=== PATIENT | female | born 1970 | race Caucasian/White ===

== ENCOUNTER 2019-09-24 05:45 | Day surgery (SDC) | payer OTHER ==
[~2019-09-24] VITALS: Ht 167.6 cm; Wt 62.6 kg
[~2019-09-24 05:45] MED LIST: OMEPRAZOLE20 MG PO
[2019-09-24] MEDS ORDERED: PERCOCET 5-3251 EACH PO (14:15)
[2019-09-24] MEDS ORDERED: MOTRIN IB200 MG (14:17)
--- NOTE | 2019-09-25 09:52 | OR ---
[facility] [address] [place] [address] Signed DATE OF OPERATION: 09/24/2019 SURGEON: Orestes Mason MD Patient of Dr. Mason. PREOPERATIVE DIAGNOSES: Excessive/frequent menstrual bleeding with irregular cycle, uterine fibroids, dysmenorrhea, bilateral complex ovarian masses. POSTOPERATIVE DIAGNOSES: Excessive/frequent menstrual bleeding with irregular cycle, uterine fibroids, dysmenorrhea, bilateral complex ovarian masses, endometriosis of pelvic peritoneum. PROCEDURES: Total laparoscopic hysterectomy, bilateral salpingo-oophorectomy, and cystoscopy. DIRECTOR OF BUSINESS CONTINUITY: Dr. Andrew. ANESTHESIA: General. ESTIMATED BLOOD LOSS: 30 mL. SPECIMEN: Uterus, both tubes and ovaries. DRAINS: Redd to bladder. PACKING: None. FINDINGS: Cervix, normal-sized, thick, closed. Uterus was irregular-shaped approximately 8-week size with approximately 4 cm fibroid protruding out of the right anterior lower segment. The anterior cul-de-sac had some of the peritoneum pulled towards the uterus on the right side forming a puckering of the peritoneum and the posterior cul-de-sac was free Electronically Signed By: ORESTES MASON MD 09/25/19 0952 PATIENT NAME: STAS PERDUE OPERATIVE REPORT DATE OF : 70 REPORT #: [id number] PHYSICIAN: ORESTES MASON MD PCP: CARLOS BECERRA MD REPORT IS CONFIDENTIAL AND NOT TO BE RELEASED WITHOUT AUTHORIZATION [facility] [address] [place], [place] [address] Signed of any endometriosis or adhesions. The left tube was normal in length and normal pink fimbriated end. The left ovary was enlarged, appeared to have a dark hemorrhagic approximately 4 cm cyst present. No adhesions. The right tube was normal length and normal pink fimbriated end. The right ovary was slightly enlarged, but otherwise appeared normal. There was endometriosis on the right pelvic sidewall just above the uterosacral ligament on the broad ligament near the uterine vessels causing some puckering. The appendix appeared normal. The rest of the pelvis was free of any masses or adhesions. The liver and gallbladder also appeared normal. COMPLICATIONS: None. DESCRIPTION OF PROCEDURE: The patient was brought to the operating room and placed in supine position. After adequate general anesthesia was obtained, she was placed in the dorsal lithotomy position, and prepped and draped in a sterile fashion. Redd catheter was placed in the bladder. Weighted speculum was placed in the vagina and the anterior lip of cervix grasped with an Allis clamp. The cervix was partially dilated and then the VCare uterine manipulator inserted into the uterus and up to the fundus, which measured approximately 10 cm. The balloon was filled with water and then the weighted speculum and Allis clamp removed. The cervical cap was slid up the manipulator and placed around the cervix and the vaginal cuff slid up and tightened in place to hold the cervical cap around the cervix. Attention was then drawn to the abdomen. A small infraumbilical skin incision was made after injecting the area with 0.25% Marcaine with epinephrine. A 5 mm direct entry trocar and sleeve were then used with gas attached to the trocar and the abdominal wall was manually lifted and the trocar and sleeve entered the abdomen under direct visualization. Since the tip entered the abdomen, gas began flowing into the abdomen to help separate the abdominal wall from the bowel. Once the sleeve was in place, trocar was removed and the 5 mm laparoscope with camera attachment inserted. The above findings were noted. On the left side just below the level of the umbilicus approximately 8-10 cm from the midline, abdominal wall was transilluminated, injected with 0.25% Marcaine with epinephrine and a small skin incision made. A bladed 5-mm trocar and sleeve entered the abdomen under direct visualization. Trocar was removed. A blunt grasper inserted on the right side again just below the level of the umbilicus, 8-10 cm lateral. The abdominal wall was transilluminated to avoid any vessels. The area injected with 0.25% Marcaine with epinephrine and then a small skin incision made on this side. A Veress needle with expandable sleeve was inserted into the abdomen under direct visualization. Trocar was removed and expandable trocar with 12 mm sleeve was placed through the expandable sleeve stretching the fascia without cutting it. The trocar was removed and blunt grasper inserted this side. Above findings were confirmed. The LigaSure, bipolar cautery Electronically Signed By: ORESTES MASON MD 09/25/19 0952 PATIENT NAME: STAS PERDUE OPERATIVE REPORT DATE OF : 70 REPORT #: [id number] PHYSICIAN: ORESTES MASON MD PCP: CARLOS BECERRA MD REPORT IS CONFIDENTIAL AND NOT TO BE RELEASED WITHOUT AUTHORIZATION [address] [address] Signed forceps were then brought to the operating field, were then placed through the sleeve. On the left side, infundibulopelvic ligament was cauterized in several places, cut, and an Endoloop of 0 Monocryl placed around the infundibulopelvic ligament and tightened in place for further hemostasis. Dissection was then carried down the peritoneum to the left round ligament, which was cauterized in several places and cut and the broad ligament and peritoneum opened anteriorly and posteriorly down the side of the uterus and around to the midline on both sides exposing the uterine vasculature. The uterine vessels were then cauterized in several places and cut. The tissue taken down to the level of the cervical cap, which could be palpated with the laparoscopic instruments. On the right side, again, the infundibulopelvic ligament was cauterized in several places and cut and the pedicle further secured with Endoloop of 0 Monocryl suture. The peritoneum was opened down to the round ligament, which was noted to be somewhat adherent to the uterus, so it was taken off. The part adherent to the uterus was taken down between the round ligament and uterus to straighten out the round ligament, which could then be cauterized in several places and cut. The anterior and posterior leaves of the broad ligament were then taken down with some difficulty because of the right lower segment anterior fibroid, but the peritoneum was taken off this and slid off the fibroid and down around off the fibroid down to the lower segment. The peritoneum below this was somewhat adherent because of the deep endometriosis. This was taken down after the rest of the dissection was done so that the cervical cap could the identified and all dissection taken place inside the cervical cap. With the vessels exposed, they were cauterized in several places and cut and the tissue taken down to the vaginal wall over the cervical cap. With all vessels free and good dissection down to the vaginal wall, the Sonicision was used to open the posterior cul-de-sac in the groove of the cervical cap and the left side cut in the groove from posterior to anterior midline and then the dissection carried out and continued in the groove of the cervical cap posterior to anterior on the right side. This is to remove the cervix from the vaginal wall. Attention was then drawn to the vagina where the cervix was observed. It was grasped with Allis clamp and then a double tooth tenaculum and the uterus with attached tubes and ovaries gently and carefully removed through the vaginal opening and passed off the table. A lap filled glove was then placed in the vagina and the abdomen re-insufflated. The abdomen was irrigated, suctioned, examined, and noted to have good hemostasis. The vaginal cuff was then closed with Endo Stitch of barbed suture starting at the right uterosacral ligament and stitching from posterior to anterior through the posterior vaginal wall and the suture then placed through the loop in the end of the barbed suture. The suture was then placed posterior to anterior in the anterior vaginal wall making sure to incorporate the vaginal mucosa and the wall of the vagina without going too deep towards the bladder. The closure was continued from the right side to the left uterosacral ligament individually grasping the posterior and then anterior edges of the vaginal wall and closing the cuff. Upon reaching the left uterosacral ligament, the Electronically Signed By: ORESTES MASON MD 09/25/19 0952 PATIENT NAME: STAS PERDUE OPERATIVE REPORT DATE OF : 70 REPORT #: [id number] PHYSICIAN: ORESTES MASON MD PCP: CARLOS BECERRA MD REPORT IS CONFIDENTIAL AND NOT TO BE RELEASED WITHOUT AUTHORIZATION [facility] [address] [place] [id number] Signed stitch was taken back superficially through the combined cuff to lock the suture in place and the barbed suture cut off against the vaginal wall. The entire pelvis was irrigated, suctioned, examined, and noted to have good hemostasis. Tisseel was then sprayed over the entire area of dissection for further hemostasis and then the gas allowed to escape. All sleeves were removed. Three incisions were closed using subcuticular stitches of 4-0 Vicryl. Redd catheter was removed and 70-degree cystoscope placed through into the urethra and entered the bladder under direct visualization. Sterile saline was used as distending medium as the cystoscope was inserted. The bladder was inspected and no defects or stitches were seen. No blood was noted in the bladder. Both ureteral orifices were easily identified and both had good strong jets of urine, so the bladder was drained, the cystoscope removed, and the Redd catheter placed back in the bladder. The glove was removed from the vagina and vagina noted to have good hemostasis also. The patient tolerated the procedure well, went to recovery room in good condition. The sponge, needle, and instrument count correct at the end of procedure. Again, the uterus, both tubes and ovaries sent to Pathology for identification. MD MARCIN GoreB/DEBBIE /[id number] cc: Carlos Becerra MD Copies: CARLOS BECERRA MD ~ Electronically Signed By: ORESTES MASON MD 09/25/19 0952 PATIENT NAME: STAS PERDUE OPERATIVE REPORT DATE OF : 70 REPORT #: [id number] PHYSICIAN: ORESTES MASON MD PCP: CARLOS BECERRA MD REPORT IS CONFIDENTIAL AND NOT TO BE RELEASED WITHOUT AUTHORIZATION
--- NOTE | 2019-09-28 16:19 | PATH ---
[facility] [address] [place], [place] [address] Signed SPECIMEN(S): A UTERUS, TUBES AND OVARIES SPECIMEN SOURCE: A. UTERUS, TUBES AND OVARIES CLINICAL HISTORY: Excessive, frequent menstruation with irregular cycle, submucous leiomyoma of uterus, dysmenorrhea. Ovarian mass. FINAL PATHOLOGIC DIAGNOSIS: Uterus, bilateral fallopian tubes and ovaries, hysterectomy and bilateral salpingo-oophorectomy. - Cervix: - Squamous metaplasia. - Small Nabothian cyst. - Endometrium: Proliferative phase. - Myometrium: Intramural leiomyomas. - Right and left fallopian tubes: No microscopic pathologic diagnosis. - Right ovary: Follicle cyst. - Left ovary: Hemorrhagic corpus luteum. LJA:smn:[id number] MICROSCOPIC EXAMINATION: Histologic sections of all submitted blocks are examined by light microscopy. These findings, together with the gross examination, support the pathologic diagnosis. GROSS DESCRIPTION: The specimen, labeled "TP, uterus with bilateral tubes and ovaries," is received in formalin and consists of a 194 g, 10.8 x 8.5 x 6.2 cm uterus including a 3.5 cm diameter cervix with a 0.8 cm slit-like os. Attached to the uterus is a 17 g, 4.6 x 3.5 x 3.3 cm left ovary with a 7.1 cm in length x 0.8 cm diameter fimbriated left fallopian tube. Also attached to the uterus is a 5 g, 3.0 x 3.0 x 1.3 cm right ovary with a 6.1 cm in length x 0.7 cm diameter fimbriated right fallopian tube. In the posterior corpus, there are two jacobo-white, whorled and well-circumscribed intramural nodules measuring 0.7 and 0.8 cm in greatest dimension. In the anterior corpus, there are four jacobo-white, whorled and well- circumscribed intramural nodules ranging from a 0.7 cm to 4.4 x 3.6 x 3.4 cm. The PATIENT NAME: STAS PERDUE PATHOLOGY DATE OF : 70 REPORT #: [id number] PHYSICIAN: NATALIIA JAMES PCP: LULU WINSLOW MD REPORT IS CONFIDENTIAL AND NOT TO BE RELEASED WITHOUT AUTHORIZATION [facility] [address] [place], [place] [address] Signed 0.1 cm thick endometrium is jacobo-red and smooth. The myometrium is jacobo-pink and grossly unremarkable. Both fallopian tubes have a violaceous and smooth serosal surface with a stellate lumen. The left ovary is cystic with the cyst filled with hemorrhagic fluid. The right ovary has a jacobo and convoluted ovarian surface with a jacobo-brown to orange and cystic ovarian stroma. Cassette summary: (A1) Anterior and posterior cervix (A2) Posterior corpus with nodules (A3) Anterior corpus with smaller nodules (A4) Largest anterior nodule (A5) Left adnexa (A6) Right adnexa AM (under the direct supervision of a pathologist) The Gross Description was prepared using a voice recognition system. The report was reviewed for accuracy; however, sound-alike word errors, addition and/or deletions may occur. If there is any question about this report, please contact Client Services. PERFORMING LABORATORY: The technical component was performed by [facility], [address] [place] [address] (Automobile Appraiser: Daniella Vale MD; CLIA# [id number]). Professional interpretation was performed by [facility], [facility], [address] [address] (Automobile Appraiser: Gabriel Garvey MD; CLIA# [id number]). Diagnostician: Gabriel Garvey MD Pathologist Electronically Signed 09/28/2019 Copies: ~ PATIENT NAME: STAS PERDUE PATHOLOGY DATE OF : 70 REPORT #: [id number] PHYSICIAN: NATALIIA PATHOLOGY PCP: LULU WINSLOW MD REPORT IS CONFIDENTIAL AND NOT TO BE RELEASED WITHOUT AUTHORIZATION
== END 2019-09-24 15:40 | disposition home or self-care (01) ==
LOC: DS 05:45 → OPS 05:45 → DS 06:45 → OPS 15:40
PROVIDERS: General Practice
PROC: 0UT94ZZ Resection of Uterus, Percutaneous Endoscopic Approach (ICD-10-PCS; principal; 2019-09-24 06:45)
PROC: 0UT24ZZ Resection of Bilateral Ovaries, Percutaneous Endoscopic Approach (ICD-10-PCS; 2019-09-24 06:45)
PROC: 0UT74ZZ Resection of Bilateral Fallopian Tubes, Percutaneous Endoscopic Approach (ICD-10-PCS; 2019-09-24 06:45)
DX: D25.1 Intramural leiomyoma of uterus (principal); N87.9 Dysplasia of cervix uteri, unspecified; N80.3 Endometriosis of pelvic peritoneum; N88.8 Other specified noninflammatory disorders of cervix uteri; N83.01 Follicular cyst of right ovary; N94.5 Secondary dysmenorrhea; N83.12 Corpus luteum cyst of left ovary; K21.9 Gastro-esophageal reflux disease without esophagitis; K22.2 Esophageal obstruction; Z88.5 Allergy status to narcotic agent; Z79.899 Other long term (current) drug therapy; Z98.890 Other specified postprocedural states
CPT/HCPCS: 00840; J0690; J1100; J1644; J1885; J2250; J2405; J2550; J2704; J2765; J3010; J7121